=== PATIENT | female | born 1970 | race Caucasian/White ===

== ENCOUNTER 2021-07-21 04:49 | Inpatient (IN) | payer SELFPAY ==
[2021-07-21 05:30] LABS: Urine Blood Negative (Negative); Urine Glucose Negative (Negative); Urine Protein Negative (Negative); Urine Specific Gravity 1.025 (1.005-1.030); Urine pH 6.5 (5.0-7.0)
[2021-07-21] MEDS ORDERED: ASPIRIN 81 MG CHEWABLE TABLET ONE (05:47)
[2021-07-21 05:54] LABS: ALT/SGPT 20 U/L (12-78); AST/SGOT 11 U/L (15-37); Albumin 3.1 g/dL (3.4-5.0); Alkaline Phosphatase 118 U/L (45-117); BUN Blood Urea Nitrogen 14 mg/dL (7-18); Bicarbonate 29 mmol/L (21-32); Bilirubin Direct < 0.1 mg/dL (0-0.2); Bilirubin Total 0.2 mg/dL (0.2-1.0); Glucose Level 128 mg/dL (74-106); Lipase 152 U/L (73-393); NT PRO-BNP 32 pg/mL (<125); Potassium 3.9 mmol/L (3.5-5.1); Protein, Total 6.6 g/dL (6.4-8.2); Sodium Level 140 mmol/L (136-145); Troponin (Emerg Dept Use Only) < 0.02 ng/mL (0.0-0.045)
[2021-07-21 06:01] LABS: Absolute Lymphocytes (CBC) 1.7 K/uL (0.7-4.9); Basophils % 0.4 % (0-1.3); Hematocrit 39.4 % (36.0-45.0); Lymphocytes % 19.4 % (15.3-44.8); MPV 7.6 fL (7.6-11.3); RBC Red Blood Cell Count 4.74 M/uL (3.86-4.86)
[2021-07-21 06:03] LABS: Barbiturates NEGATIVE (NEGATIVE); Benzodiazepines NEGATIVE (NEGATIVE); Cocaine NEGATIVE (NEGATIVE); METHAMPHETAM POSITIVE (NEGATIVE); Methadone NEGATIVE (NEGATIVE); Opiates NEGATIVE (NEGATIVE); Phencyclidine NEGATIVE (NEGATIVE); THC Cannibis NEGATIVE (NEGATIVE)
--- NOTE | 2021-07-21 07:44 | RAD REPORT ---
EXAM DESCRIPTION: CT - Chest For Pe Angio - 07/21/2021 7:14 am CLINICAL HISTORY: Chest pain COMPARISON: July 21, 2021 chest x-ray TECHNIQUE: Dynamically enhanced axial 3 mm thick images of the chest were obtained during administra tion of <100> mL Isovue 370 IV contrast. Coronal and oblique reconstruction images were generated and reviewed. Exam utilizes a protocol for optimal evaluation of pulmonary arterial tree. Maximum intensity projections 3D imaging was utilized All CT scans are performed using dose optimization technique as appropriate and may include automated exposure control or mA/KV adjustment according to patient size. FINDINGS: A pulmonary embolus is not seen. A thoracic aortic aneurysm is not noted. A pleural effusion is not seen. A pericardial effusion is not seen. A lung consolidation is not present. IMPRESSION: Negative for a pulmonary embolism.
--- NOTE | 2021-07-21 07:44 | RAD REPORT ---
EXAM DESCRIPTION: Michelle Single View07/21/2021 5:26 am CLINICAL HISTORY: Chest pain COMPARISON: none FINDINGS: The lungs appear clear of acute infiltrate. The heart is normal size IMPRESSION: No acute abnormalities displayed
[2021-07-21] MEDS ORDERED: ENOXAPARIN 80 MG/0.8 ML SQ ONE (09:52)
--- NOTE | 2021-07-21 10:05 | P.HP ---
Certification for Inpatient With expected LOS: >2 Midnights Patient will require the following post-hospital care: None Practitioner: I am a practitioner with admitting privileges, knowledge of patient current condition, hospital course, and medical plan of care. Services: Services provided to patient in accordance with Admission requirements found in Title 42 Section 412.3 of the Code of Federal Regulations <Leticia Merino - Last Filed: 07/21/21 13:00> Patient History Date of Service: 07/21/21 Primary Care Provider: none Reason for admission: chest pain History of Present Illness: Ms. Maynard is a 51 year old woman with no medical history , tobacco abuse 1/2 ppd for 27 years who came to the ED at 5:30 am this morning with complaints of left side chest pain. The patient was asleep when she woke up from chest pain at 4:30 am prior to presentation. She describes the quality as chest tightness / pressure with radiation to left arm. It has been a constant pain since it started this morning. The pain was 6/10 when it started and is currently 0/10 in the ED after ASA 325 mg. She has not tried any medication at home. She denies fever , shortness of breath , diaphoresis , fatigue , palpitations , nausea , vomiting , diarrhea , weakness , dizziness , syncope , numbness or tingling. She does not report any aggravating or alleviating factors. She is visiting her daughter from [place] and had broke up with her boyfriend yesterday. She does not have health insurance and has not primary care provider. UDS positive for amphetamine , troponin 0.17 , D- dimer 824, EKG / CXT , CTA all unremarkable. The patient has history of COVID twice April 2020 and April 2021. She is not vaccinated against COVID. - Past Medical/Surgical History Diabetic: No Past Medical History: Patient denies medical history Past Surgical History: Patient denies surgical history - Social History Smoking Status: Current every day smoker Counseled patient to stop smoking for: less than 10 minutes Smoking therapy provided: Yes <Leticia Merino - Last Filed: 07/21/21 13:00> Date of Service: 07/21/21 - Family History Family History: Reviewed- Non-Contributory - Social History Place of Residence: Home <Hany Contreras - Last Filed: 07/21/21 16:34> Allergies Penicillins Allergy (Unknown, Verified 07/21/21 10:55) Rash Review of Systems General: Unremarkable Eyes: Unremarkable ENT: Unremarkable Respiratory: Unremarkable Cardiovascular: Unremarkable Gastrointestinal: Unremarkable Genitourinary: Unremarkable Musculoskeletal: Unremarkable Integumentary: Unremarkable Neurological: Unremarkable <Leticia Merino - Last Filed: 07/21/21 13:00> Physical Examination - Physical Exam General: Alert, In no apparent distress, Oriented x3, Cooperative HEENT: Atraumatic, Normocephalic, PERRLA, Mucous membr. moist/pink, Sclerae nonicteric Neck: Supple, 2+ carotid pulse no bruit, JVD not distended, Without JVD or thyroid abnormality Respiratory: Clear to auscultation bilaterally, Normal air movement Cardiovascular: No edema, Normal pulses, Regular rate/rhythm, Normal S1 S2, No gallops, No rubs, No murmurs Gastrointestinal: Normal bowel sounds, Soft and benign, Non-distended, No ascites, No tenderness, No masses, No rebound, No guarding Musculoskeletal: No clubbing, No swelling, No contractures, No erythema, No tenderness, No warmth Integumentary: No rashes, No breakdown, No significant lesion, No tenderness/swelling, No erythema, No warmth, No cyanosis Neurological: Normal gait, Normal speech, Normal strength at 5/5 x4 extr - Studies Laboratory Data (last 24 hrs) 07/21/21 05:00: PT 11.5, INR 1.00 07/21/21 05:00: WBC 8.80, Hgb 13.2, Hct 39.4, Plt Count 305 07/21/21 05:00: Sodium 140, Potassium 3.9, BUN 14, Creatinine 0.75, Glucose 128 H, Magnesium 2.0, Total Bilirubin 0.2, AST 11 L, ALT 20, Alkaline Phosphatase 118 H, Lipase 152 <WilberLeticia - Last Filed: 07/21/21 13:00> - Studies Laboratory Data (last 24 hrs) 07/21/21 05:00: PT 11.5, INR 1.00 07/21/21 05:00: WBC 8.80, Hgb 13.2, Hct 39.4, Plt Count 305 07/21/21 05:00: Sodium 140, Potassium 3.9, BUN 14, Creatinine 0.75, Glucose 128 H, Magnesium 2.0, Total Bilirubin 0.2, AST 11 L, ALT 20, Alkaline Phosphatase 118 H, Lipase 152 <Hany Contreras - Last Filed: 07/21/21 16:34> Assessment and Plan - Plan Assessment: 51 year old caucacian female with history of 1/2 ppd smoking for past 27 years presents for evaluation of chest pain. Plan: NonST-segment elevation myocardial infarction secondary to ACS: EKG NSR CXR unremarkable UDS positive for amphetamine Troponin 0.71. continue to [facility] q6H Echo pending Serial EKGs Continue telemonitoring Continue core measure: ASA , MARA-I , BB , Statin Lipid panel pending Heart healthy diet Educated patient on diet, exercise, smoking cessation, and lifestyle modification. Cardiology Consulted. Awaiting recommendations Elevated D-dimer: CTA negative continue to monitor Discharge Plan: Home Plan to discharge in: 48 Hours - Advance Directives Does patient have a Living Will: No Does patient have a Durable POA for Healthcare: No <Leticia Merino - Last Filed: 07/21/21 13:00> - Plan Plan of care discussed with Leticia as noted above. Agree with plan NSTEMI, trend troponin, echo ordered, aspirin, beta-fortunato, statin, pain control, telemetry UDS positive for amphetamines, increasing risk for ID/CAD Lovenox 1 mg/kg BID Cardiology consulted Time Spent Managing Pts Care (In Minutes): 60 <Hany Contreras - Last Filed: 07/21/21 16:34>
[2021-07-21] MEDS ORDERED: NITROGLYCERIN 0.4 MG/TAB SL PRN (10:06)
--- NOTE | 2021-07-21 10:07 | ER ---
[facility]'s [facility] Name: Vanessa Maynard Age: 51 yrs Sex: Female : 1970 Arrival Date: 07/21/2021 Time: 04:51 Bed 7 Private MD: Diagnosis: Non ST elevation MS Presentation: 07/21 05:07 Chief complaint: Patient states: Pt woke up at 0430 with midsternal chest pain and left df1 elbow pain. Coronavirus screen: Vaccine status: Patient reports being unvaccinated. Client reports previous positive COVID test result. Date of collection: April 2021. Ebola Screen: Patient negative for fever greater than or equal to 101.5 degrees Fahrenheit, and additional compatible Ebola Virus Disease symptoms Patient denies exposure to infectious person. Patient denies travel to an Ebola-affected area in the 21 days before illness onset. Initial Sepsis Screen: Does the patient meet any 2 criteria? No. Patient's initial sepsis screen is negative. Does the patient have a suspected source of infection? No. Patient's initial sepsis screen is negative. Risk Assessment: Do you want to hurt yourself or someone else? Patient reports no desire to harm self or others. Onset of symptoms was July 21, 2021 at 04:30. 05:07 Method Of Arrival: Ambulatory df1 05:07 Acuity: TEZ 3 df1 05:36 Note Pt ambulated to restroom with steady gait. Pt states she had a large BM, states "I df1 Feel better". 06:23 Note Pt resting quietly in bed. denies pain at this time. Waiting for more lab results. df1 Triage Assessment: 05:10 General: Appears in no apparent distress. uncomfortable, Behavior is anxious. Pain: df1 Complains of pain in xiphoid area and mid-sternal area Pain radiates to left antecubital area. EENT: No deficits noted. Neuro: No deficits noted. Cardiovascular:. Respiratory: Airway is patent Trachea midline Respiratory effort is even, unlabored, Respiratory pattern is regular, symmetrical, Breath sounds are clear bilaterally. GI: No deficits noted. : No deficits noted. Derm: No deficits noted. Musculoskeletal: No deficits noted. 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 - Social history:: Smoking status: Patient reports the use of cigarette tobacco products, smokes one pack cigarettes per day. Screenin:14 Abuse screen: Denies threats or abuse. Nutritional screening: No deficits noted. df1 Tuberculosis screening: No symptoms or risk factors identified. Fall Risk None identified. Assessment: 05:13 General: Appears in no apparent distress. Behavior is anxious. Pain: Complains of pain df1 in xiphoid area and mid-sternal area Pain began suddenly, 1 hour ago. Neuro: No deficits noted. Cardiovascular: No deficits noted. Respiratory: Airway is patent Trachea midline Respiratory effort is even, unlabored, Respiratory pattern is regular, symmetrical, Breath sounds are clear bilaterally. GI: No deficits noted. : No deficits noted. EENT: No deficits noted. Derm: No deficits noted. Musculoskeletal: No deficits noted. 07:22 General: Reports " I woke up with chest pain and that is why I came here. It doesn't tw5 hurt anymore, it stopped awhile after I came here". Pain: Denies pain. Neuro: No deficits noted. Cardiovascular: Heart tones S1 S2 present. Respiratory: Airway is patent Trachea midline Respiratory effort is even, unlabored, Respiratory pattern is regular, symmetrical. GI: Abdomen is round non-distended, Bowel sounds present X 4 quads. 08:39 Reassessment: Patient appears in no apparent distress at this time. No changes from tw5 previously documented assessment. Patient and/or family updated on plan of care and expected duration. Pain level reassessed. Patient is alert, oriented x 3, equal unlabored respirations, skin warm/dry/pink. Pain: Denies pain. 09:32 Reassessment: Patient appears in no apparent distress at this time. No changes from tw5 previously documented assessment. Patient and/or family updated on plan of care and expected duration. Pain level reassessed. Patient is alert, oriented x 3, equal unlabored respirations, skin warm/dry/pink. 10:48 Reassessment: Patient appears in no apparent distress at this time. No changes from tw5 previously documented assessment. Patient and/or family updated on plan of care and expected duration. Pain level reassessed. Patient is alert, oriented x 3, equal unlabored respirations, skin warm/dry/pink. Pain: Denies pain. Vital Signs: 05:07 BP 152 / 88; Pulse 96; Resp 18; Temp 97.7(O); Pulse Ox 100% on R/A; Weight 81.65 kg; df1 Height 5 ft. 3 in. (160.02 cm); Pain 5/10; 06:22 BP 129 / 69; Pulse 86; Resp 18; Pulse Ox 99% on R/A; Pain 0/10; df1 07:22 BP 130 / 67; Pulse 84; Resp 18; Pulse Ox 100% on R/A; Pain 0/10; tw5 08:39 BP 148 / 66; Pulse 81; Resp 17; Pulse Ox 100% on R/A; Pain 0/10; tw5 09:32 BP 135 / 72; Pulse 84; Resp 14; Pulse Ox 96% on R/A; Pain 0/10; tw5 10:48 BP 139 / 68; Pulse 81; Resp 19; Pulse Ox 99% on R/A; Pain 0/10; tw5 05:07 Body Mass Index 31.89 (81.65 kg, 160.02 cm) df1 ED Course: 04:51 Patient arrived in ED. bp1 04:54 Tc Rome MD is Attending Physician. 7 05:07 Liliya Hooks is Primary Nurse. df1 05:09 Triage completed. df1 05:13 Inserted saline lock: 20 gauge in right antecubital area, using aseptic technique. df1 Patient maintains SpO2 saturation greater than 95% on room air. 05:15 No provider procedures requiring assistance completed. df1 05:15 Arm band placed on right wrist. df1 05:15 Patient has correct armband on for positive identification. Placed in gown. Bed in low df1 position. Call light in reach. Side rails up X 1. Adult w/ patient. satellite project site monitor on. Pulse ox on. NIBP on. 05:20 Lipase Sent. df1 05:20 Basic Metabolic Panel Sent. df1 05:20 CBC with Diff Sent. df1 05:20 LFT's Sent. df1 05:20 Magnesium Sent. df1 05:20 NT PRO-BNP Sent. df1 05:20 Troponin (emerg Dept Use Only) Sent. df1 05:20 PT-INR Sent. df1 05:21 ETOH Level Sent. df1 05:26 XRAY Chest (1 view) In Process Unspecified. EDMS 05:33 UDS Sent. df1 06:22 CPK Sent. df1 06:22 D-Dimer Sent. df1 06:55 Yong Verdin PA is PHCP. jmm 07:07 CT Chest For PE Angio Sent. df1 07:14 CT Chest For PE Angio In Process Unspecified. EDMS 07:22 Primary Nurse role handed off by Liliya Hooks tw5 07:22 Soni Dudley is Primary Nurse. tw5 07:22 No apparent distress. Awaiting re-evaluation by ER provider. Patient moved back from CT.tw5 07:22 Patient has correct armband on for positive identification. Placed in gown. Bed in low tw5 position. Call light in reach. Side rails up X 1. satellite project site monitor on. Pulse ox on. NIBP on. Door closed. Noise minimized. Lights dimmed. Moved to private room. Warm blanket given. Verbal reassurance given. 08:39 Awaiting lab results. tw5 08:39 Lab(s) recollected, by me, sent to lab. tw5 08:39 Assisted to bathroom. tw5 08:40 Troponin (emerg Dept Use Only) Sent. tw5 09:24 Troponin (emerg Dept Use Only) Sent. tw5 09:46 EKG done, by ED staff, reviewed by Yong LAGUNAS. gd 10:06 Hany Contreras MD is Hospitalizing Provider. jmm 10:48 Patient has correct armband on for positive identification. Placed in gown. Bed in low tw5 position. Call light in reach. Side rails up X 1. satellite project site monitor on. Pulse ox on. NIBP on. Door closed. Noise minimized. Lights dimmed. Warm blanket given. Verbal reassurance given. 10:51 COVID-19 (Coronavirus) Document "Date of Onset" if Symptomatic Sent. tw5 10:51 CORONAVIRUS Sent. tw5 16:20 Patient admitted, IV remains in place. tw5 Administered Medications: 05:33 Drug: Aspirin Chewable Tablet 324 mg Route: PO; df1 07:25 Follow up: Response: No adverse reaction; Pain is decreased tw5 09:31 Drug: Lovenox (enoxaparin) 1 mg/kg Route: Sub-Q; Site: right lower abdomen; tw5 Outcome: 10:06 Decision to Hospitalize by Provider. greg 15:06 Admitted to Tele Report called to 1st attempt to call report. Patient currently tw5 getting report on another patient. I was asked to call back in 10 min. 15:58 Admitted to Tele Report called to Have been attempting to call 4th floor no answer. [facility] documentation supervisor notified. Called [phone], [phone], 1445 16:04 Admitted to Tele Report called to Spoke to Tata, she stated that the receiving nurse [facility] is unable to take report at this time, and will call back when available. 16:12 Admitted to Tele accompanied by tech, via wheelchair, with chart, Report called to [facility] Report called to Claudia FRY 16:20 Condition: stable tw5 16:21 Patient left the ED. tw5 Signatures: Dispatcher [employer] EDMS Yong Verdin PA PA jmm Paniauga, Brittany bp1 Holmes, Maurice, MD MD 7 Liliya Hooks dfSoni Pichardo tw5 Scott Candelaria
--- NOTE | 2021-07-21 10:07 | EDPHYS ---
Physician Documentation [facility] Name: Vanessa Maynard Age: 51 yrs Sex: Female : 1970 Arrival Date: 07/21/2021 Time: 04:51 Bed 7 Private MD: ED Physician Tc Rome HPI: 07/21 05:13 This 51 yrs old Female presents to ER via Ambulatory with complaints of Chest mh7 Pain > 30 y/o. 05:13 The patient or guardian reports chest pain that is located primarily in the substernal mh7 area. Onset: today, at 04:30. The pain does not radiate. Associated signs and symptoms: Pertinent positives: Left elbow pain, Pertinent negatives: abdominal pain, cough, diaphoresis, dizziness, headache, lower extremity pain, lower extremity swelling, lightheadedness, nausea, near syncope, palpitations, shortness of breath, syncope, vomiting. The chest pain is described as Discomfort. Duration: The patient or guardian reports multiple episodes, that are intermittent, that wax and wane, with no pattern. Modifying factors: The symptoms are alleviated by nothing. the symptoms are aggravated by nothing. Severity of pain: At its worst the pain was moderate today, in the emergency department the pain has improved moderately. 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 - Social history:: Smoking status: Patient reports the use of cigarette tobacco products, smokes one pack cigarettes per day. ROS: 05:13 Constitutional: Negative for fever, chills, and weight loss, Eyes: Negative for injury, mh7 pain, redness, and discharge, ENT: Negative for injury, pain, and discharge, Neck: Negative for injury, pain, and swelling, Respiratory: Negative for shortness of breath, cough, wheezing, and pleuritic chest pain, Abdomen/GI: Negative for abdominal pain, nausea, vomiting, diarrhea, and constipation, Back: Negative for injury and pain, : Negative for injury, bleeding, discharge, and swelling, MS/Extremity: Negative for injury and deformity, Skin: Negative for injury, rash, and discoloration, Neuro: Negative for headache, weakness, numbness, tingling, and seizure, Psych: Negative for depression, anxiety, suicide ideation, homicidal ideation, and hallucinations, Allergy/Immunology: Negative for hives, rash, and allergies, Endocrine: Negative for neck swelling, polydipsia, polyuria, polyphagia, and marked weight changes, Hematologic/Lymphatic: Negative for swollen nodes, abnormal bleeding, and unusual bruising. Exam: 05:13 Constitutional: This is a well developed, well nourished patient who is awake, alert, mh7 and in no acute distress. Head/Face: Normocephalic, atraumatic. Eyes: Pupils equal round and reactive to light, extra-ocular motions intact. Lids and lashes normal. Conjunctiva and sclera are non-icteric and not injected. Cornea within normal limits. Periorbital areas with no swelling, redness, or edema. Neck: Trachea midline, no thyromegaly or masses palpated, and no cervical lymphadenopathy. Supple, full range of motion without nuchal rigidity, or vertebral point tenderness. No Meningismus. Chest/axilla: Normal chest wall appearance and motion. Nontender with no deformity. No lesions are appreciated. Cardiovascular: Regular rate and rhythm with a normal S1 and S2. No gallops, murmurs, or rubs. Normal PMI, no JVD. No pulse deficits. Respiratory: Lungs have equal breath sounds bilaterally, clear to auscultation and percussion. No rales, rhonchi or wheezes noted. No increased work of breathing, no retractions or nasal flaring. Abdomen/GI: Soft, non-tender, with normal bowel sounds. No distension or tympany. No guarding or rebound. No evidence of tenderness throughout. Back: No spinal tenderness. No costovertebral tenderness. Full range of motion. Skin: Warm, dry with normal turgor. Normal color with no rashes, no lesions, and no evidence of cellulitis. MS/ Extremity: Pulses equal, no cyanosis. Neurovascular intact. Full, normal range of motion. Neuro: Awake and alert, GCS 15, oriented to person, place, time, and situation. Cranial nerves II-XII grossly intact. Motor strength 5/5 in all extremities. Sensory grossly intact. Cerebellar exam normal. Normal gait. Psych: Awake, alert, with orientation to person, place and time. Behavior, mood, and affect are within normal limits. Vital Signs: 05:07 BP 152 / 88; Pulse 96; Resp 18; Temp 97.7(O); Pulse Ox 100% on R/A; Weight 81.65 kg; df1 Height 5 ft. 3 in. (160.02 cm); Pain 5/10; 06:22 BP 129 / 69; Pulse 86; Resp 18; Pulse Ox 99% on R/A; Pain 0/10; df1 07:22 BP 130 / 67; Pulse 84; Resp 18; Pulse Ox 100% on R/A; Pain 0/10; tw5 08:39 BP 148 / 66; Pulse 81; Resp 17; Pulse Ox 100% on R/A; Pain 0/10; tw5 09:32 BP 135 / 72; Pulse 84; Resp 14; Pulse Ox 96% on R/A; Pain 0/10; tw5 10:48 BP 139 / 68; Pulse 81; Resp 19; Pulse Ox 99% on R/A; Pain 0/10; tw5 05:07 Body Mass Index 31.89 (81.65 kg, 160.02 cm) df1 MDM: 07:[address] [facility] 10:03 The patient was given aspirin in the Emergency Department. Data reviewed: vital signs, [facility] nurses notes. Counseling: I had a detailed discussion with the patient and/or guardian regarding: the historical points, exam findings, and any diagnostic results supporting the discharge/admit diagnosis, lab results, radiology results, the need for further work-up and treatment in the hospital. ED course: I discussed the patient with Mrs Wilber NP whom accepted the patient to Dr. Contreras's service. . 07/21 05:12 Order name: Basic Metabolic Panel; Complete Time: 06:07/21 05:12 Order name: CBC with Diff; Complete Time: 06:07/21 05:12 Order name: LFT's; Complete Time: 06:09 7 07/21 05:12 Order name: Magnesium; Complete Time: 06:07/21 05:12 Order name: NT PRO-BNP; Complete Time: 06:09 [facility] 07/21 05:12 Order name: PT-INR; Complete Time: 06:09 [facility] 07/21 05:12 Order name: Troponin (emerg Dept Use Only); Complete Time: 06:09 [facility] 07/21 05:12 Order name: UDS; Complete Time: 06:09 [facility] 07/21 05:12 Order name: Lipase; Complete Time: 06:09 [facility] 07/21 05:13 Order name: ETOH Level; Complete Time: 06:09 [facility] 07/21 05:30 Order name: Urine Dipstick-Ancillary; Complete Time: 05:41 [facility] 07/21 06:09 Order name: D-Dimer; Complete Time: 06:40 [facility] 07/21 06:10 Order name: CPK; Complete Time: 06:40 [facility] 07/21 08:01 Order name: Troponin (emerg Dept Use Only); Complete Time: 09:51 [facility] 07/21 05:12 Order name: XRAY Chest (1 view); Complete Time: 08:01 [facility] 07/21 05:12 Order name: EKG; Complete Time: 05:12 [facility] 07/21 06:40 Order name: CT Chest For PE Angio; Complete Time: 08:01 [facility] 07/21 10:17 Order name: Basic Metabolic Panel EDKS 07/21 10:17 Order name: Lipid Profile; Complete Time: 12:22 [facility] 07/21 10:17 Order name: PTT, Activated Partial Thromb EDKS 07/21 10:17 Order name: Troponin I EDKS 07/21 10:17 Order name: Echo with Doppler EDKS 07/21 10:17 Order name: CBC with Automated Diff EDKS 07/21 10:18 Order name: Magnesium; Complete Time: 12:22 EDMS 07/21 10:22 Order name: COVID-19 (Coronavirus) Document "Date of Onset" if Symptomatic eb 07/21 10:23 Order name: CORONAVIRUS [facility] 07/21 11:45 Order name: SARS-COV-2 RT PCR; Complete Time: 11:48 EDMS 07/21 12:17 Order name: CKMB Creatine Kinase MB; Complete Time: 12:22 [facility] 07/21 05:12 Order name: Cardiac monitoring; Complete Time: 05:13 [facility] 07/21 05:12 Order name: EKG - Nurse/Tech; Complete Time: 05:13 [facility] 07/21 05:12 Order name: IV Saline Lock; Complete Time: 05:13 7 07/21 05:12 Order name: Labs collected and sent; Complete Time: 05:13 7 07/21 05:12 Order name: O2 Per Protocol; Complete Time: 05:13 7 07/21 05:12 Order name: O2 Sat Monitoring; Complete Time: 05:13 7 07/21 05:12 Order name: Urine Dipstick-Ancillary (obtain specimen); Complete Time: 05:34 7 07/21 09:24 Order name: EKG - Nurse/Tech; Complete Time: 09:32 [facility] 07/21 10:17 Order name: Heart Healthy [facility] 07/21 10:17 Order name: EKG Electrocardiogram [facility] 07/21 10:17 Order name: EKG Electrocardiogram EDMS 07/21 10:17 Order name: EKG Electrocardiogram [facility] 07/21 10:17 Order name: EKG Electrocardiogram EDMS Administered Medications: 05:33 Drug: Aspirin Chewable Tablet 324 mg Route: PO; df1 07:25 Follow up: Response: No adverse reaction; Pain is decreased tw5 09:31 Drug: Lovenox (enoxaparin) 1 mg/kg Route: Sub-Q; Site: right lower abdomen; tw5 Disposition Summary: 07/21/21 10:06 Hospitalization Ordered Hospitalization Status: Inpatient Admission [facility] Provider: Hany Contreras Location: Telemetry/MedSurg (Inpatient) [facility] Condition: Stable [facility] Problem: new [facility] Symptoms: have improved [facility] Bed/Room Type: Standard [facility] Room Assignment: 426(07/21/21 14:43) eb Diagnosis - Non ST elevation TN [facility] Forms: - Medication Reconciliation Form [facility] - SBAR form [facility] Addendum: 07/24/2021 07:13 Co-signature as Attending Physician, Tc Rome MD. [facility] Signatures: Dispatcher [employer] EDMS Yong Verdin PA PA Vicky Huang Maurice, MD MD 7 Liliya Hooks df1 Soni Dudley tw5 Corrections: (The following items were deleted from the chart) 07/21 14:43 10:06 jmm eb
[2021-07-21] MEDS: METOPROLOL TARTRATE 5 MG/5 ML INJ IV SCH ×3 (11:00→11:10)
[2021-07-21] MEDS ORDERED: LORAZEPAM 1 MG TABLET PO PRN (11:11)
[2021-07-21] MEDS ORDERED: ACETAMINOPHEN 325 MG TABLET PO PRN (11:12)
[2021-07-21 11:33] VITALS: BMI 31.8
[2021-07-21] MEDS ORDERED: INSULIN -REGULAR HUMAN 50 UNIT/0.5 ML ML SQ SCH (12:00)
[2021-07-21 12:15] LABS: Magnesium 2.1 mg/dL (1.8-2.4)
[2021-07-21] MEDS ORDERED: INFLUENZA VACCINE (for 6+ mo) 0.5 ML DOSE IMVAC ONE ×2 (13:00→14:31)
[2021-07-21] MEDS: METOPROLOL TAR 25 MG TAB PO SCH (18:02)
[2021-07-21] MEDS: ENOXAPARIN 80 MG/0.8 ML SQ SCH (19:43)
[2021-07-21] MEDS ORDERED: ATORVASTATIN 80 MG TAB PO SCH (21:00)
[2021-07-22] MEDS: METOPROLOL TAR 25 MG TAB PO SCH (05:48)
[2021-07-22 06:11] LABS: Hematocrit 38.5 % (36.0-45.0); MPV 7.4 fL (7.6-11.3); RBC Red Blood Cell Count 4.65 M/uL (3.86-4.86)
[2021-07-22 06:35] LABS: BUN Blood Urea Nitrogen 9 mg/dL (7-18); Bicarbonate 27 mmol/L (21-32); Glucose Level 95 mg/dL (74-106); Potassium 4.2 mmol/L (3.5-5.1); Sodium Level 141 mmol/L (136-145)
[2021-07-22 06:46] LABS: Troponin I 0.59 ng/mL (0.0-0.045)
[2021-07-22] MEDS ORDERED: HEPA 1000U/500MLS 1,000 UNIT/500 ML BAG IV ONE (07:18)
--- NOTE | 2021-07-22 08:59 | EKG ---
Test Date: 2021-07-21 Test Time: 09:41:42 Spinning Frame Fixer: MEHDI MEASUREMENT RESULTS: Intervals: Rate: 79 OH: 138 QRSD: 84 QT: 402 QTc: 460 [place]: P: 66 OH: 138 QRS: 47 T: 62 INTERPRETIVE STATEMENTS: Normal sinus rhythm Normal ECG Compared to ECG 07/21/2021 05:03:16 No significant changes Electronically Signed On 07-22-21 08:57:24 CDT by Ghanshyam Pat
[2021-07-22] MEDS ORDERED: ASPIRIN 325 MG TAB PO SCH (09:00)
[2021-07-22] MEDS ORDERED: lisinopriL 20 MG TAB PO SCH (09:00)
--- NOTE | 2021-07-22 09:00 | EKG ---
Test Date: 2021-07-21 Test Time: 05:03:16 Animal Cop: REMIGIO MEASUREMENT RESULTS: Intervals: Rate: 96 GA: 154 QRSD: 82 QT: 372 QTc: 469 Ehrhardt: P: 72 GA: 154 QRS: 67 T: 73 INTERPRETIVE STATEMENTS: Normal sinus rhythm Normal ECG No previous ECG available for comparison Electronically Signed On 07-22-21 08:57:27 CDT by Ghanshyam Pat
[2021-07-22] MEDS ORDERED: NA CHLORIDE 0.9% 500 ML ONE (09:01)
[2021-07-22] MEDS ORDERED: FENTANYL CITR 100 MCG/2 ML ONE (10:41)
[2021-07-22] MEDS ORDERED: MIDAZOLAM HCL 2 MG/2 ML INJ ONE ×2 (10:41→11:24)
[2021-07-22] MEDS ORDERED: NITROGLYCERIN 100 MCG/ML SYR (for cath lab use only) IV ONE (10:42)
[2021-07-22] MEDS ORDERED: NITROGLYCERIN/D5W 25 MG/250 ML BTL IV ONE (10:42)
[2021-07-22] MEDS ORDERED: NA CHLORIDE 0.9% 0 ML ONE (10:42)
[2021-07-22] MEDS ORDERED: ATROPINE SULF 1 MG/10 ML SYR IV ONE (10:42)
--- NOTE | 2021-07-22 12:21 | CON ---
Date of Consultation: 07/21/2021 Reason For Consultation: Abnormal troponin and chest pain. History Of Present Illness: Ms. Maynard is a 51-year-old white woman with a family history of heart disease, positive tobacco use. Denies diabetes, hypertension, dyslipidemia. Takes no medicine. Ca me in with chest pain that was midsternal, chest pressure, nonexertional, woke her up from sleep. No nausea, vomiting, diaphoresis, PND, orthopnea, pedal edema, palpitation, or syncope. Her EKG was no rmal, but her troponin was positive and I was consulted. Past Medical History: Negative. Allergies: NEGATIVE. Family History: Positive for heart disease. Social History: Positive for tobacco use. Review of Systems: Negative. Physical Examination: Vital Signs: Stable, afebrile. HEENT: Negative. Neck: Supple with no bruit. Chest: Clear to auscultation and percussion. Cardiac: Revealed a regular rhythm and rate. No murmurs, gallops, or rubs. Abdomen: Benign. Extremities: Revealed no clubbing, cyanosis, or edema. Diagnostic Data: As stated earlier. Chest x-ray was negative. Impression And Plan: Chest pain, atypical as it woke her up from sleep. It was not exertional. No other symptoms. Positive troponin. Nevertheless, the patient has positive tobacco history, family h istory of heart disease. We decided to recommend a left heart catheterization to define her coronary anatomy. The patient understands the risks and the benefits of the procedure. She agrees to procecourtney d. The case will be discussed with Dr. Contreras. The case will be done on 07/22/2021. Continue medici ne for now. Hold Lovenox after midnight. FRANCIS/BUCK Voice ID: [id number] Report ID: [id number]
--- NOTE | 2021-07-22 12:27 | OP ---
Surgeon: Ghanshyam Pat MD Log Tumbler: Adali Rivera. Procedures: Left heart catheterization, selective coronary arteriogram. Indication: Chest pain and positive troponin consistent with non-ST elevation myocardial infarction. Procedure In Detail: The patient brought to the chemical laboratory tester today as an inpatient. She is 51, history of tobacco use, otherwise no previous past medical history. In the chemical laboratory tester, she was prepped and neto ped in the routine sterile fashion. Given Versed and fentanyl for sedation. A 6-Israeli sheath intro duced in the right common femoral artery. Angiography there was normal. Angio-Seal was used to clos e the case. A 6-Israeli sheath was introduced using Seldinger technique. JR4 and JL4 catheter were u sed to select the left main and right main respectively. She had a tortuous blood vessel, but normal coronaries. No focal stenosis. The patient tolerated the procedure well. There were no complicati ons. Blood Loss: 5 mL. Anesthesia: Total conscious sedation was 30 minutes. Postoperative Diagnoses: False positive troponin, positive chest pain, normal coronaries. Plan: Medical therapy, aspirin, tobacco cessation habematolel. NB/MODL Voice ID: [id number] Report ID: [id number]
[2021-07-22 12:29] VITALS: O2SAT 99
[2021-07-22] MEDS: ENOXAPARIN 80 MG/0.8 ML SQ SCH (13:13)
[2021-07-22 13:19] VITALS: BP 132/70; TEMP 97.8
--- NOTE | 2021-07-22 13:53 | P.DS ---
Admission Date: 07/21/21 Discharge Date: 07/22/21 Primary Care Provider: none Disposition: ROUTINE DISCHARGE Discharge Condition: GOOD Reason for Admission: chest pain Consultations: Cardiology - Dr. Pat Procedures: CXR (07/21): FINDINGS: The lungs appear clear of acute infiltrate. The heart is normal size IMPRESSION: No acute abnormalities displayed CTA chest (07/21): FINDINGS: A pulmonary embolus is not seen. A thoracic aortic aneurysm is not noted. A pleural effusion is not seen. A pericardial effusion is not seen. A lung consolidation is not present. IMPRESSION: Negative for a pulmonary embolism. Cardiac catheterization (07/22) by Dr. Pat Postoperative Diagnoses: False positive troponin, positive chest pain, normal coronaries. Problem list Chest pain Positive methamphetamine use Brief History of Present Illness: 51 year old woman with no medical history , tobacco abuse 1/2 ppd for 27 years who came to the ED at 5:30 am this morning with complaints of left side chest pain. The patient was asleep when she woke up from chest pain at 4:30 am prior to presentation. She describes the quality as chest tightness / pressure with radiation to left arm. It has been a constant pain since it started this morning. The pain was 6/10 when it started and is currently 0/10 in the ED after ASA 325 mg. She has not tried any medication at home. She denies fever , shortness of breath , diaphoresis , fatigue , palpitations , nausea , vomiting , diarrhea , weakness , dizziness , syncope , numbness or tingling. She does not report any aggravating or alleviating factors. She is visiting her daughter from [place] and had broke up with her boyfriend yesterday. She does not have health insurance and has not primary care provider. UDS positive for amphetamine , troponin 0.17 , D- dimer 824, EKG / CXT , CTA all unremarkable. The patient has history of COVID twice April 2020 and April 2021. She is not vaccinated against COVID. Hospital Course: EKG without ST changes/ischemic changes. Troponin increased, peaking to 1.27. Cardiology was consulted for NSTEMI, and patient was subsequently taken to the [facility] on 07/22. Her cardiac catheterization revealed no coronary artery disease, and a false positive elevated troponin. Cardiology recommended continuation with a low-dose aspirin daily, otherwise no new medications/changes. Patient deemed stable for discharge. To follow-up with your PCP in 3 to 5 days. Vital Signs/Physical Exam: Temp Pulse Resp BP Pulse Ox 97.8 F 75 18 132/70 98 07/22/21 13:18 07/22/21 13:18 07/22/21 13:18 07/22/21 13:18 07/22/21 13:18 General: Alert, In no apparent distress, Oriented x3 HEENT: Sclerae nonicteric Neck: Supple Respiratory: Clear to auscultation bilaterally, Normal air movement Cardiovascular: No edema, Regular rate/rhythm, No murmurs Gastrointestinal: Soft and benign, Non-distended, No tenderness Musculoskeletal: No erythema Integumentary: No rashes, No significant lesion Neurological: Normal speech, Normal affect Laboratory Data at Discharge: WBC 8.20 K/uL (4.3-10.9) 07/22/21 05:50 Hgb 12.7 g/dL (12.0-15.0) 07/22/21 05:50 Hct 38.5 % (36.0-45.0) 07/22/21 05:50 Plt Count 303 K/uL (152-406) 07/22/21 05:50 PT 11.5 SECONDS (9.5-12.5) 07/21/21 05:00 INR 1.00 07/21/21 05:00 APTT Cancelled 07/21/21 Unknown Sodium 141 mmol/L (136-145) 07/22/21 05:50 Potassium 4.2 mmol/L (3.5-5.1) 07/22/21 05:50 BUN 9 mg/dL (7-18) 07/22/21 05:50 Creatinine 0.65 mg/dL (0.55-1.3) 07/22/21 05:50 Glucose 95 mg/dL (74-106) 07/22/21 05:50 Magnesium 2.0 mg/dL (1.8-2.4) 07/22/21 05:50 Total Bilirubin 0.2 mg/dL (0.2-1.0) 07/21/21 05:00 AST 11 U/L (15-37) L 07/21/21 05:00 ALT 20 U/L (12-78) 07/21/21 05:00 Alkaline Phosphatase 118 U/L (45-117) H 07/21/21 05:00 Troponin I 0.59 ng/mL (0.0-0.045) H* 07/22/21 05:50 Triglycerides 103 mg/dL (<150) 07/21/21 11:35 Cholesterol 198 mg/dL (<200) 07/21/21 11:35 HDL Cholesterol 35 mg/dL (40-60) L 07/21/21 11:35 Cholesterol/HDL Ratio 5.66 07/21/21 11:35 Lipase 152 U/L (73-393) 07/21/21 05:00 Home Medications: Aspirin [Aspirin EC 81 MG] 81 mg PO DAILY 30 Days #30 tablet. 07/22/21 New Medications: Aspirin [Aspirin EC 81 MG] 81 mg PO DAILY 30 Days #30 tablet. Physician Discharge Instructions: Your chest pain was evaluated with a chest x-ray, CT scan, EKG, and cardiac troponins. Everything was normal/negative with the exception of mildly elevated cardiac enzymes. Cardiology was consulted and recommended cardiac catheterization. Your coronary arteries were noted to be normal, without any evidence of disease/blockage. Effectively ruling out your heart as a cause of this chest pain. There is also no clear evidence of any broken ribs, no infection, no blood clot, no other abnormality seen on imaging. This may have been due to the amount of stress you have had, or possibly some acid reflux. Follow-up with your PCP in 3-5 days. Recommend a daily baby aspirin for now. Can follow-up with cardiology in the next 4 to 6 weeks. Diet: Regular Activity: Ad dee Followup: Leticia Merino PA [Primary Care Provider] - Time spent managing pt's care (in minutes): 45
[2021-07-22] MEDS ORDERED: ACETAMINOPHEN 325 MG TABLET PO PRN (15:00)
--- NOTE | 2021-07-23 08:02 | ECHO ---
HEIGHT: 5 ft 3 in WEIGHT: 180 lb 0 oz DATE OF STUDY: 07/22/[address]: BEBO Ngo 2-DIMENSIONAL: YES M.MODE: YES DOPPLER: YES COLOR FLOW: YES TDS: PORTABLE: DEFINITY: BUBBLE STUDY: DIAGNOSIS: CHEST PAIN CARDIAC HISTORY: CATHERIZATION: YES SURGERY: NO PROSTHETIC VALVE: NO PACEMAKER: NO MEASUREMENTS (cm) DIASTOLIC (NORMALS) SYSTOLIC (NORMALS) IVSd 1.1 (0.6-1.2) LA Diam 2.5 (1.9-4.0) LVEF 55-60% LVIDd 2.5 (3.5-5.7) LVIDs 1.9 (2.0-3.5) %FS 25% LVPWd 1.1 (0.6-1.2) Ao Diam 2.7 (2.0-3.7) 2 DIMENSIONAL ASSESSMENT: RIGHT ATRIUM: NORMAL LEFT ATRIUM: NORMAL RIGHT VENTRICLE: NORMAL LEFT VENTRICLE: NORMAL TRICUSPID VALVE: NORMAL MITRAL VALVE: NORMAL PULMONIC VALVE: NORMAL AORTIC VALVE: NORMAL PERICARDIAL EFFUSION: NONE AORTIC ROOT: NORMAL LEFT VENTRICULAR WALL MOTION: NORMAL DOPPLER/COLOR FLOW: NORMAL COMMENTS: NORMAL LEFT VENTRICULAR EJECTION FRACTION 55-60%. NORMAL WALL MOTION. TECHNOLOGIST: ROSA MANCILLA
== END 2021-07-22 14:50 | disposition home or self-care (01) | DRG 287 ==
LOC: ER 04:49 → SUPCPDRO 04:49 → ERHOLD 10:07 → 4TH 16:16
PROVIDERS: ADMIT Hospitalist; ATTEND Hospitalist
PROC: B201YZZ Plain Radiography of Multiple Coronary Arteries using Other Contrast (ICD-10-PCS; principal; 2021-07-22)
DX: R07.89 Other chest pain (principal); F15.90 Other stimulant use, unspecified, uncomplicated; F17.210 Nicotine dependence, cigarettes, uncomplicated; Z86.16 Personal history of COVID-19; Z20.822 Contact with and (suspected) exposure to COVID-19; Z23 Encounter for immunization
CPT/HCPCS: 36415; 71045; 71275; 80048; 80061; 80076; 80307; 80320; 81003; 82550; 82553; 82947; 83690; 83735; 83880; 84484; 85025; 85027; 85379; 85610; 90471; 93005; 93306; 93454; 94760; 96372; 99285; C1760; C1893; J0583; J1644; J2250; J3010; J7040; Q2035; Q9967; U0003

== ENCOUNTER 2022-06-28 23:27 | Emergency (ER) | payer SELFPAY ==
[2022-06-28] MEDS ORDERED: TETRACAINE HCL 0.5% 4ML OPTH ONE (23:49)
[2022-06-28] MEDS ORDERED: FLUORESCEIN SODIUM 1 MG/WRAP ONE (23:49)
--- NOTE | 2022-06-28 23:53 | EDPHYS ---
Physician Documentation [facility] Name: Vanessa Maynard Age: 51 yrs Sex: Female : 1970 Arrival Date: 06/28/2022 Time: 23:30 Bed 14 Private MD: ED Physician Keya Lomas HPI: 06/28 23:37 This 51 yrs old Female presents to ER via Ambulatory with complaints of Eye Injury. kb 23:37 Associated signs and symptoms: Pertinent positives: None. Severity of symptoms: At kb their worst the symptoms were moderate in the emergency department the symptoms are unchanged. The patient has not experienced similar symptoms in the past. The patient has not recently seen a physician. 23:38 The patient is experiencing burning, matting or discharge, redness, to the left eye. kb Onset: The symptoms/episode began/occurred today. Duration: the symptoms are continuous. Aggravated by nothing. Alleviated by nothing. Pt reports redness, itching, burning, discharge from left eye. States a nail hit the outside of her eye yesterday and her granddaughter had pink eye last week so she isn't sure if one of those things are related.. Historical: - Allergies: 23:34 PENICILLINS; hb - PSHx: 23:34 Tonsillectomy; tubal ligation; hb - Immunization history:: Adult Immunizations up to date. - Social history:: Smoking status: Patient denies any tobacco usage or history of. ROS: 23:36 Constitutional: Negative for fever, chills, and weight loss. kb 23:36 Eyes: Positive for discharge, itching, redness, of the left eye. 23:36 All other systems are negative. Exam: 23:36 Constitutional: This is a well developed, well nourished patient who is awake, alert, kb and in no acute distress. Head/Face: Normocephalic, atraumatic. Respiratory: Respirations even and unlabored. No increased work of breathing. Talking in full sentences Skin: Warm, dry with normal turgor. Normal color. MS/ Extremity: Pulses equal, no cyanosis. Neurovascular intact. Full, normal range of motion. Neuro: Awake and alert, GCS 15, oriented to person, place, time, and situation. Moves all extremities. Normal gait. Psych: Awake, alert, with orientation to person, place and time. Behavior, mood, and affect are within normal limits. 23:36 Eyes: Pupils: equal, round, and reactive to light and accomodation, Extraocular movements: no acute changes, Conjunctiva: exudate, injected, Corneas: abrasion, is not appreciated, foreign body, is not appreciated, a fluorescein strip employed to appreciate the findings. Vital Signs: 23:31 BP 164 / 88; Pulse 102; Resp 18; Temp 97.7; Pulse Ox 100% on R/A; Weight 86.18 kg; hb Height 5 ft. 3 in. (160.02 cm); Pain 2/10; 23:31 Body Mass Index 33.66 (86.18 kg, 160.02 cm) hb Visual Acuity: 23:44 Left Eye Visual acuity 20/30, Normal; Right Eye Visual acuity 20/40, ; Both Eyes Visual ke1 acuity 20/30; Without Lenses; MDM: 23:33 Patient medically screened. kb 23:36 Data reviewed: vital signs, nurses notes. Data interpreted: Pulse oximetry: on room air kb is 100 %. Interpretation: normal. 23:39 Counseling: I had a detailed discussion with the patient and/or guardian regarding: the kb historical points, exam findings, and any diagnostic results supporting the discharge/admit diagnosis, the need for outpatient follow up, an opthalmologist, to return to the emergency department if symptoms worsen or persist or if there are any questions or concerns that arise at home. 06/28 23:36 Order name: Eye Tray; Complete Time: 23:39 kb 06/28 23:36 Order name: Fluoresene Opth strip; Complete Time: 23:39 kb 06/28 23:36 Order name: Visual Acuity; Complete Time: 23:43 kb Administered Medications: 23:40 Drug: Tetracaine Drops 0.5 % 1 drops {Note: by provider.} Route: Ophthalmic; Site: left ke1 eye; 23:58 Drug: Bacitracin-Polymyxin B Ointment 1 application Route: Ophthalmic; Site: left eye; ke1 Disposition: 06/29 20:58 STAFF ATTESTATION STATEMENT: I was immediately available onsite in the emergency sd2 department for consultation in the care of this patient. I did not see or examine this patient. Keya Lomas MD. Disposition Summary: 06/28/22 23:52 Discharge Ordered Location: Home kb Condition: Stable kb Diagnosis - Unspecified conjunctivitis kb Followup: kb - With: Emergency Department - When: As needed - Reason: Worsening of condition Followup: kb - With: Private Physician - When: 2 - 3 days - Reason: Recheck today's complaints, Continuance of care, Re-evaluation by your physician Discharge Instructions: - Discharge Summary Sheet kb - Bacterial Conjunctivitis, Adult, [id number] kb Forms: - Medication Reconciliation Form kb - Thank You Letter kb - Antibiotic Education kb - Prescription Opioid Use kb Signatures: Heidi Christian, VIANCA-C VIANCA-Chantelle Velasco, RN RN Venkatesh Jimenez RN RN ke1 Keya Lomas MD MD sd2 Corrections: (The following items were deleted from the chart) 06/28 23:52 23:36 Eyes: Pupils: equal, round, and reactive to light and accomodation, Extraocular kb movements: no acute changes, Conjunctiva: exudate, injected, kb
--- NOTE | 2022-06-28 23:53 | ER ---
Nurse's Notes [facility] Name: Vanessa Maynard Age: 51 yrs Sex: Female : 1970 Arrival Date: 06/28/2022 Time: 23:30 Bed 14 Private MD: Diagnosis: Unspecified conjunctivitis Presentation: 06/28 23:31 Chief complaint: Was removing a nail from wood yesterday, the nail flipped up and hit hb her upper eyelid, today c/o left eye redness, pain, itching, and greenish-yellow discharge. Coronavirus screen: At this time, the client does not indicate any symptoms associated with coronavirus-19. Ebola Screen: No symptoms or risks identified at this time. Initial Sepsis Screen: Does the patient meet any 2 criteria? No. Patient's initial sepsis screen is negative. Does the patient have a suspected source of infection? No. Patient's initial sepsis screen is negative. Risk Assessment: Do you want to hurt yourself or someone else? Patient reports no desire to harm self or others. Onset of symptoms was June 27, 2022. 23:31 Method Of Arrival: Ambulatory 23:31 Acuity: TEZ 4 hb Triage Assessment: 23:35 General: Appears in no apparent distress. Behavior is appropriate for age. ke1 Historical: - Allergies: 23:34 PENICILLINS; hb - PSHx: 23:34 Tonsillectomy; tubal ligation; hb - Immunization history:: Adult Immunizations up to date. - Social history:: Smoking status: Patient denies any tobacco usage or history of. Screenin:35 Abuse screen: Denies threats or abuse. Nutritional screening: No deficits noted. ke1 Tuberculosis screening: No symptoms or risk factors identified. Fall Risk None identified. Assessment: 23:58 Pain: Denies pain. ke1 06/29 00:14 Reassessment: Patient states feeling better. Patient states symptoms have improved. ke1 Vital Signs: 06/28 23:31 BP 164 / 88; Pulse 102; Resp 18; Temp 97.7; Pulse Ox 100% on R/A; Weight 86.18 kg; hb Height 5 ft. 3 in. (160.02 cm); Pain 2/10; 23:31 Body Mass Index 33.66 (86.18 kg, 160.02 cm) hb Visual Acuity: 23:44 Left Eye Visual acuity 20/30, Normal; Right Eye Visual acuity 20/40, ; Both Eyes Visual ke1 acuity 20/30; Without Lenses; ED Course: 23:30 Patient arrived in ED. [email or web address] 23:33 Heidi Christian FNP-C [facility]. kb 23:33 Keya Lomas MD is Attending Physician. kb 23:34 Triage completed. hb 23:34 Arm band placed on. hb 23:35 Bed in low position. Call light in reach. ke1 23:36 Venkatesh Jimenez, RN is Primary Nurse. ke1 06/29 00:13 No provider procedures requiring assistance completed. Patient did not have IV access ke1 during this emergency room visit. Administered Medications: 06/28 23:40 Drug: Tetracaine Drops 0.5 % 1 drops {Note: by provider.} Route: Ophthalmic; Site: left ke1 eye; 23:58 Drug: Bacitracin-Polymyxin B Ointment 1 application Route: Ophthalmic; Site: left eye; ke1 Medication: 06/29 00:13 VIS not applicable for this client. ke1 Outcome: 06/28 23:52 Discharge ordered by . kb 06/29 00:13 Discharged to home ambulatory. ke1 Condition: good Discharge instructions given to patient. 00:14 Patient left the ED. ke1 Signatures: Heidi Christian FNP-C FNP-Ckb Baxter, Heather, RN RN Mireille Molina Venkatesh Jimenez, LISANDRA RN ke1
[2022-06-29] MEDS ORDERED: NEO/BAC/POLY/HC OPTH OINT ONE (00:06)
[2022-06-30 11:31] VITALS: BP 164/88; TEMP 97.7; O2SAT 100
== END 2022-06-29 00:14 | disposition home or self-care (01) ==
LOC: ER 23:27
DX: H10.9 Unspecified conjunctivitis (principal); Z88.0 Allergy status to penicillin
CPT/HCPCS: 99283

== ENCOUNTER 2023-05-17 23:21 | Emergency (ER) | payer SELFPAY ==
[2023-05-18] MEDS ORDERED: ALBUTEROL 2.5 MG/3 ML NEB SOL ONE (00:32)
[2023-05-18] MEDS ORDERED: predniSONE 20 MG TAB ONE (00:32)
[2023-05-18] MEDS ORDERED: IPRATROPIUM BROM 0.5MG/2.5ML ONE (00:33)
--- NOTE | 2023-05-18 00:45 | ER ---
Nurse's Notes [facility] Name: Vanessa Maynard Age: 52 yrs Sex: Female : 1970 Arrival Date: 05/17/2023 Time: 23:21 Bed 12 Private MD: Diagnosis: Acute bronchitis, unspecified Presentation: 05/18 00:13 Chief complaint: Patient states: I have had a cough for the last 3-4 days. Coronavirus vc1 screen: Vaccine status: Patient reports being unvaccinated. Client denies travel out of the [place] in the last 14 days. cough unrelated to allergies, Client presents with at least one sign or symptom that may indicate coronavirus-19. Ebola Screen: Patient negative for fever greater than or equal to 101.5 degrees Fahrenheit, and additional compatible Ebola Virus Disease symptoms Patient denies exposure to infectious person. Patient denies travel to an Ebola-affected area in the 21 days before illness onset. No symptoms or risks identified at this time. 00:13 Method Of Arrival: Ambulatory vc1 00:18 Initial Sepsis Screen: Does the patient meet any 2 criteria? No. Patient's initial vc1 sepsis screen is negative. Does the patient have a suspected source of infection? No. Patient's initial sepsis screen is negative. Risk Assessment: Do you want to hurt yourself or someone else? Patient reports no desire to harm self or others. Onset of symptoms was May 14, 2023. 00:18 Acuity: TEZ 4 vc1 Triage Assessment: 00:16 General: Appears in no apparent distress. uncomfortable, Behavior is calm, cooperative, vc1 appropriate for age. Pain: Denies pain. EENT: No deficits noted. No signs and/or symptoms were reported regarding the EENT system. Neuro: Level of Consciousness is awake, alert, obeys commands, Oriented to person, place, time, situation, Appropriate for age. Cardiovascular: No deficits noted. Respiratory: Airway is patent Respiratory effort is even, unlabored, Respiratory pattern is regular, symmetrical. Respiratory: Reports cough that is non-productive, persistent. GI: No deficits noted. No signs and/or symptoms were reported involving the gastrointestinal system. : No deficits noted. No signs and/or symptoms were reported regarding the genitourinary system. Derm: No deficits noted. No signs and/or symptoms reported regarding the dermatologic system. Musculoskeletal: No deficits noted. No signs and/or symptoms reported regarding the musculoskeletal system. 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 - Social history:: Smoking status: Patient reports the use of cigarette tobacco products, smokes one-half pack cigarettes per day. - Family history:: not pertinent. Screenin:18 [facility] ED Fall Risk Assessment (Adult) History of falling in the last 3 months, vc1 including since admission No falls in past 3 months (0 pts) Confusion or Disorientation No (0 pts) Intoxicated or Sedated No (0 pts) Impaired Gait No (0 pts) Mobility Assist Device Used No (0 pt) Altered Elimination No (0 pt) Score/Fall Risk Level 0 - 2 = Low Risk Oriented to surroundings, Maintained a safe environment, Educated pt \T\ family on fall prevention, incl call for assistance when getting out of bed. Abuse screen: Denies threats or abuse. Nutritional screening: No deficits noted. Tuberculosis screening: No symptoms or risk factors identified. Assessment: 01:10 Reassessment: Patient and/or family updated on plan of care and expected duration. Pain vc1 level reassessed. Patient states feeling better. Patient states symptoms have improved. Vital Signs: 00:13 BP 157 / 88; Pulse 100; Resp 18; Temp 97.5; Pulse Ox 96% ; Weight 88.45 kg; Height 5 vc1 ft. 3 in. ; Pain 0/10; 01:12 BP 140 / 86; Pulse 98; Resp 18; Pulse Ox 95% ; vc1 00:13 Body Mass Index 34.54 (88.45 kg, 160.02 cm) vc1 00:13 Pain Scale: Adult vc1 ED Course: 05/17 23:24 Patient arrived in ED. [email or web address] 23:27 Isaac Barth MD is Attending Physician. rt 05/18 00:17 Arm band placed on right wrist. vc1 00:18 Triage completed. vc1 00:19 Patient has correct armband on for positive identification. Bed in low position. Pulse vc1 ox on. NIBP on. 00:27 Chest Pa And Lat (2 Views) XRAY In Process Unspecified. EDMS 01:12 No provider procedures requiring assistance completed. Patient did not have IV access vc1 during this emergency room visit. Administered Medications: 00:26 Drug: predniSONE PO 40 mg Route: PO; vc1 00:26 Drug: Albuterol Inhalation 2.5 mg Route: Inhalation; vc1 00:26 Drug: Ipratropium Inhalation Aerosol 0.5 mg Route: Inhalation; vc1 Medication: 00:19 VIS not applicable for this client. vc1 Outcome: 00:45 Discharge ordered by MD. rt 01:12 Discharged to home ambulatory. vc1 01:12 Condition: good 01:12 Discharge instructions given to patient, Instructed on discharge instructions, follow vc1 up and referral plans. medication usage, Demonstrated understanding of instructions, follow-up care, medications, Prescriptions given X 2. 01:12 Patient left the ED. vc1 Signatures: Dispatcher [employer] EDNJ Gisele Oropeza [email or web address] Patria Mccallum, RN RN vc1 Isaac Barth MD MD rt Corrections: (The following items were deleted from the chart) 03:19 03:19 Patient left the ED. vc1 vc1
--- NOTE | 2023-05-18 00:45 | EDPHYS ---
Physician Documentation [facility] Name: Vanessa Maynard Age: 52 yrs Sex: Female : 1970 Arrival Date: 05/17/2023 Time: 23:21 Bed 12 Private MD: ED Physician Isaac Barth HPI: 05/18 00:47 This 52 yrs old Female presents to ER via Ambulatory with complaints of Cough. rt 00:47 Patient presents to the ED with about 4 days of cough. Patient states that she has pain rt when occurs when she coughs, denies any chest pain otherwise. Denies any difficulty breathing. Patient does smoke about half a pack per day. She has had exposure to sick contacts. She denies other acute complaints at this time. Symptoms are mild in severity, no other aggravating or alleviating factors.. 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 - Social history:: Smoking status: Patient reports the use of cigarette tobacco products, smokes one-half pack cigarettes per day. - Family history:: not pertinent. ROS: 00:47 Constitutional: Negative for fever, chills, and weight loss, Abdomen/GI: Negative for rt abdominal pain, nausea, vomiting, diarrhea, and constipation, MS/Extremity: Negative for injury and deformity, Skin: Negative for injury, rash, and discoloration, Neuro: Negative for headache, weakness, numbness, tingling, and seizure, Psych: Negative for depression, anxiety, suicide ideation, homicidal ideation, and hallucinations. 00:47 Respiratory: Positive for cough, wheezing, Negative for shortness of breath. Exam: 00:47 Constitutional: This is a well developed, well nourished patient who is awake, alert, rt and in no acute distress. Head/Face: Normocephalic, atraumatic. Chest/axilla: Normal chest wall appearance and motion. Nontender with no deformity. No lesions are appreciated. Cardiovascular: Regular rate and rhythm with a normal S1 and S2. No gallops, murmurs, or rubs. Normal PMI, no JVD. No pulse deficits. Abdomen/GI: Soft, non-tender, with normal bowel sounds. No distension or tympany. No guarding or rebound. No evidence of tenderness throughout. Skin: Warm, dry with normal turgor. Normal color with no rashes, no lesions, and no evidence of cellulitis. MS/ Extremity: Pulses equal, no cyanosis. Neurovascular intact. Full, normal range of motion. Neuro: Awake and alert, GCS 15, oriented to person, place, time, and situation. Cranial nerves II-XII grossly intact. Motor strength 5/5 in all extremities. Sensory grossly intact. Cerebellar exam normal. Normal gait. Psych: Awake, alert, with orientation to person, place and time. Behavior, mood, and affect are within normal limits. 00:47 Abdomen/GI: Faint wheezes heard on all lung blake, no respiratory distress. Vital Signs: 00:13 BP 157 / 88; Pulse 100; Resp 18; Temp 97.5; Pulse Ox 96% ; Weight 88.45 kg; Height 5 vc1 ft. 3 in. ; Pain 0/10; 01:12 BP 140 / 86; Pulse 98; Resp 18; Pulse Ox 95% ; vc1 00:13 Body Mass Index 34.54 (88.45 kg, 160.02 cm) vc1 00:13 Pain Scale: Adult vc1 MDM: 05/17 23:49 Patient medically screened. rt 05/18 00:47 Differential Diagnosis: Other Bronchitis, pneumonia, pneumothorax, viral syndrome. Data rt reviewed: vital signs, nurses notes. I considered the following discharge prescriptions or medication management in the emergency department Medications were administered in the Emergency Department. See MAR. Independent interpretation of the following test(s) in the Emergency Department X-Ray: My interpretation is No consolidation seen on my interpretation of the x-ray images. Test considered but Not performed: EKG: Symptoms are most consistent with bronchospasm, denies any chest pain, EKG not indicated. Labs: Offered patient COVID, flu swabs, she declines this. CT: Low suspicion for pulmonary embolism, CT indicated. Counseling: I had a detailed discussion with the patient and/or guardian regarding: the historical points, exam findings, and any diagnostic results supporting the discharge/admit diagnosis, radiology results, the need for outpatient follow up, to return to the emergency department if symptoms worsen or persist or if there are any questions or concerns that arise at home, smoking cessation. Response to treatment: the patient's symptoms have resolved after treatment, the patient is not short of breath, wheezing has resolved. 05/18 00:02 Order name: Chest Pa And Lat (2 Views) XRAY rt Administered Medications: 00:26 Drug: predniSONE PO 40 mg Route: PO; vc1 00:26 Drug: Albuterol Inhalation 2.5 mg Route: Inhalation; vc1 00:26 Drug: Ipratropium Inhalation Aerosol 0.5 mg Route: Inhalation; vc1 Disposition Summary: 05/18/23 00:45 Discharge Ordered Location: Home rt Problem: new rt Symptoms: have improved rt Condition: Stable rt Diagnosis - Acute bronchitis, unspecified rt Followup: rt - With: Private Physician - When: 2 - 3 days - Reason: Discharge Instructions: - Discharge Summary Sheet rt - Acute Bronchitis, Adult rt Forms: - Medication Reconciliation Form rt - Thank You Letter rt - Antibiotic Education rt - Prescription Opioid Use rt - Patient Portal Instructions rt - Leadership Thank You Letter rt Prescriptions: - albuterol sulfate 90 mcg/actuation Inhalation HFA Aerosol Inhaler - inhale 2 puff by INHALATION route every 6 hours as needed for bronchospasm; 2 rt Each; Refills: 0, Product Selection Permitted - Prednisone 20 mg Oral Tablet - take 2 tablets by ORAL route once daily for 5 days; 10 tablet; Refills: 0, rt Product Selection Permitted Signatures: Dispatcher [employer] Patria Glez RN RN vc1 Isaac Barth MD MD rt
[2023-05-18 03:36] VITALS: TEMP 97.5
[2023-05-18 03:38] VITALS: BP 140/86; O2SAT 95
--- NOTE | 2023-05-18 14:10 | RAD REPORT ---
EXAM DESCRIPTION: RAD - Chest Pa And Lat (2 Views) - 05/18/2023 12:25 am CLINICAL HISTORY: 52 years Female, COUGH COMPARISON: None. FINDINGS: PA and lateral upright views of the chest. Trachea is midline. Normal size of the cardiac silhouette. No pulmonary vascular congestion. No consolidation. No pleural effusion or pneumothorax. No acute osseous abnormality. IMPRESSION: No acute radiographic abnormality. Electronically signed by: Elizabeth Weinberg MD 05/18/2023 12:38 AM CDT Due to temporary technical issues with the PACS/Fluency reporting system, reports are being signed by the in house radiologist without review as a courtesy to ensure prompt reporting. The interpreting r adiologist is fully responsible for the content of the report.
== END 2023-05-18 03:19 | disposition home or self-care (01) ==
LOC: ER 23:21
DX: J20.9 Acute bronchitis, unspecified (principal); F17.210 Nicotine dependence, cigarettes, uncomplicated; Z88.0 Allergy status to penicillin
CPT/HCPCS: 71046; 99284; J7512; J7613; J7644

== ENCOUNTER 2025-05-30 11:36 | Inpatient (IN) | payer SELFPAY ==
[2025-05-30] MEDS ORDERED: ADENOSINE 6 MG/ 2ML VIAL IV ONE (11:49)
[2025-05-30] MEDS ORDERED: NA CHLORIDE 0.9% 1,000 ML ONE (11:49)
[2025-05-30] MEDS ORDERED: MAGNESIUM SULFATE 1 gm IVPB 1 GM/100 ML BAG IV ONE (11:51)
[2025-05-30 12:13] LABS: Absolute Lymphocytes (CBC) 2.1 K/uL (0.7-4.9); Hematocrit 46.2 % (36.0-45.0); Hemoglobin 14.7 g/dL (12.0-15.0); MCH 26.0 pg (27.0-35.0); MCHC 32.0 g/dL (32.0-36.0); MCV 81.5 fL (80-100); MPV 8.6 fL (7.6-11.3); Nucleated RBC Absolute Count 0.0 (0-0); Nucleated Red Blood Cells % 0.1 % (0-0); RBC Red Blood Cell Count 5.66 M/uL (3.86-4.86); White Blood Count 13.90 thou/uL (4.3-10.9)
[2025-05-30 12:20] LABS: PT Prothrombin Time 12.9 SECONDS (10-13.0); Protime INR 1.15
[2025-05-30 12:34] LABS: Anion Gap 9.8 mEq/L (5.0-15.0); BUN Blood Urea Nitrogen 10.0 mg/dL (7-18); Glucose Level 187.0 mg/dL (74-106); Potassium 3.8 mEq/L (3.5-5.1)
[2025-05-30 12:40] LABS: Troponin High Sensitivity 19.5 pg/mL (<58.9)
--- NOTE | 2025-05-30 12:40 | RAD REPORT ---
Procedure: Chest Single View HISTORY: Palpitations COMPARISON: 2022 FINDINGS: The lungs appear clear of acute infiltrate. No significant pleural effusion noted. The heart is normal size. IMPRESSION: No acute abnormality is displayed.
[2025-05-30 13:04] LABS: Thyroid Stimulating Hormone 1.75 uIU/mL (0.358-3.740)
--- NOTE | 2025-05-30 13:31 | ER ---
Nurse's Notes [facility] Name: Vanessa Maynard Age: 54 yrs Sex: Female : 1970 Arrival Date: 05/30/2025 Time: 11:36 Bed 4 Private MD: Diagnosis: Supraventricular tachycardia Presentation: 05/30 11:50 Chief complaint: Patient states: CHEST PRESSURE, SOB, ANXIETY, PALPITATIONS. bp Coronavirus screen: At this time, the client does not indicate any symptoms associated with coronavirus-19. Ebola Screen: No symptoms or risks identified at this time. Initial Sepsis Screen: Does the patient meet any 2 criteria? HR > 90 bpm. No. Patient's initial sepsis screen is negative. Does the patient have a suspected source of infection? No. Patient's initial sepsis screen is negative. Risk Assessment: Do you want to hurt yourself or someone else? Patient reports no desire to harm self or others. Onset of symptoms is unknown. 11:50 Method Of Arrival: Ambulatory bp 11:50 Acuity: TEZ 2 bp Triage Assessment: 11:50 General: Appears distressed, Behavior is cooperative, appropriate for age, agitated, bp anxious. Pain: Denies pain. EENT: No deficits noted. Neuro: No deficits noted. Cardiovascular: Rhythm is SVT. Respiratory: Reports shortness of breath. GI: No signs and/or symptoms were reported involving the gastrointestinal system. : No signs and/or symptoms were reported regarding the genitourinary system. Derm: No deficits noted. Musculoskeletal: No deficits noted. Historical: - Allergies: 11:50 PENICILLINS; bp - PSHx: 11:50 Tonsillectomy; tubal ligation; bp - Immunization history:: Adult Immunizations unknown. - Infectious Disease History:: Denies. - Social history:: Smoking status: unknown. - Family history:: not pertinent. - Hospitalizations: : No recent hospitalization is reported. Screenin:32 [facility] ED Fall Risk Assessment (Adult) History of falling in the last 3 months, bp including since admission No falls in past 3 months (0 pts) Confusion or Disorientation No (0 pts) Intoxicated or Sedated No (0 pts) Impaired Gait No (0 pts) Mobility Assist Device Used No (0 pt) Altered Elimination No (0 pt) Score/Fall Risk Level 0 - 2 = Low Risk Oriented to surroundings. Abuse screen: Denies threats or abuse. Denies injuries from another. Nutritional screening: No deficits noted. Tuberculosis screening: No symptoms or risk factors identified. Assessment: 11:50 General: PT MOVED FROM RM 17 FOR SYMPTOMATIC SVT. PT PLACED ON MONITORING WITH DEFIB bp PADS.. 11:58 Reassessment: Patient states feeling better. Patient states symptoms have improved. bp Cardiovascular: Rhythm is sinus tachycardia. 12:32 Reassessment: Patient appears in no apparent distress at this time. Patient is alert, bp oriented x 3, equal unlabored respirations, skin warm/dry/pink. 20:34 Reassessment: Patient appears in no apparent distress at this time. No changes from lg3 previously documented assessment. Patient and/or family updated on plan of care and expected duration. Pain level reassessed. Patient is alert, oriented x 3, equal unlabored respirations, skin warm/dry/pink. Patient states feeling better. Patient states symptoms have improved. Vital Signs: 11:50 BP 109 / 73; Pulse 200; Resp 29; Pulse Ox 99% ; bp 12:00 BP 120 / 76; Pulse 98; Resp 20; Pulse Ox 98% ; bp 12:31 BP 126 / 77; Pulse 106; Resp 18; Pulse Ox 99% ; bp 14:00 BP 94 / 68; Pulse 94; Resp 17; Pulse Ox 98% ; bp 15:00 BP 105 / 81; Pulse 92; Resp 18; Pulse Ox 98% ; bp 16:00 BP 131 / 64; Pulse 87; Resp 20; Pulse Ox 99% ; bp 17:00 BP 122 / 61; Pulse 84; Resp 20; Pulse Ox 99% ; bp 20:34 BP 147 / 79; Pulse 88; Resp 18 S; Pulse Ox 99% on R/A; lg3 ED Course: 11:40 Patient arrived in ED. al6 11:40 Felicitas Pritchett PA-C is PHCP. sb4 11:40 Fuentes Contreras MD is Attending Physician. sb4 11:50 Arm band placed on. bp 11:50 Inserted saline lock: 20 gauge in right antecubital area, using aseptic technique. bp Patient maintains SpO2 saturation greater than 95% on room air. 11:55 Victor M Blackmon, RN is Primary Nurse. bp 11:55 Primary Nurse role handed off by Victor M Blackmon, LISANDRA de1 11:55 Eddleman, Judy, RN is Primary Nurse. me1 12:00 Triage completed. bp 12:32 Patient has correct armband on for positive identification. Client placed on continuous bp cardiac and pulse oximetry monitoring. NIBP monitoring applied. property assessment monitor on. Pulse ox on. NIBP on. 12:34 XRAY Chest (1 view) In Process Unspecified. EDMS 13:30 Hany Contreras MD is Hospitalizing Provider. rn 17:27 No provider procedures requiring assistance completed. Patient admitted, IV remains in bp place. Administered Medications: 11:53 Drug: Adenocard IVP 6 mg IVP once Route: IVP; Site: right antecubital; bp 14:02 Follow up: Response: Marked relief of symptoms me1 11:53 Drug: Magnesium Sulfate IVPB 1 grams IVPB once over 1 hrs Route: IVPB; Infused Over: 1 bp hrs; Site: right antecubital; 14:03 Follow up: Response: No adverse reaction; IV Status: Completed infusion me1 11:53 Drug: NS 0.9% IV 500 ml 500 ml IV at 1 bolus once; to be given as a bolus over 30 bp minutes Volume: 500 ml; Route: IV; Rate: 1 bolus; Site: right antecubital; 14:03 Follow up: Response: No adverse reaction; IV Status: Completed infusion me1 13:50 Drug: Aspirin PO 325 mg PO once Route: PO; me1 14:03 Follow up: Response: No adverse reaction me1 Medication: 17:27 VIS not applicable for this client. bp Outcome: 13:30 Decision to Hospitalize by Provider. rn 17:27 Admitted to ER Hold. Please see [facility] for further documentation. bp 17:27 Condition: stable 17:27 Instructed on the need for admit, 20:35 Patient left the ED. lg3 Signatures: Dispatcher [employer] EDMS Fuentes Contreras MD MD rn Peltier, Brian RN Sarah Betancourt RN RN lg3 Felicitas Pritchett PA-C PAJose sb4 Judy Steiner, RN RN me1 Valeri Dick6 Corrections: (The following items were deleted from the chart) 12:19 12:12 T4 FREE+C.LAB.BRZ drawn and sent. [facility] EDSC 12:19 12:12 THYROID STIMULAT HORMONE+C.LAB.BRZ drawn and sent. me1 EDMS
--- NOTE | 2025-05-30 13:31 | EDPHYS ---
Physician Documentation [facility] Name: Vanessa Maynard Age: 54 yrs Sex: Female : 1970 Arrival Date: 05/30/2025 Time: 11:36 Bed 4 Private MD: ED Physician Fuentes Contreras HPI: 05/30 12:32 This 54 yrs old Female presents to ER via Ambulatory with complaints of palpitations, rn Chest Pain, Shortness Of Breath. 12:32 Patient reports heart racing, palpitations, began this morning. Has happened once rn before but reset with ice water to the face at home on her own. Has never been evaluated for arrhythmia. Denies chest pain but does report a little bit of pressure. No new medication. Historical: - Allergies: 11:50 PENICILLINS; bp - PSHx: 11:50 Tonsillectomy; tubal ligation; bp - Immunization history:: Adult Immunizations unknown. - Infectious Disease History:: Denies. - Social history:: Smoking status: unknown. - Family history:: not pertinent. - Hospitalizations: : No recent hospitalization is reported. ROS: 12:32 Constitutional: Negative for fever, chills, and weight loss, Cardiovascular: Positive rn for palpitations and heart racing Respiratory: Positive for shortness of breath Abdomen/GI: Negative for abdominal pain, nausea, vomiting, diarrhea, and constipation, MS/Extremity: Negative for injury and deformity, Skin: Negative for injury, rash, and discoloration, Neuro: Negative for headache, weakness, numbness, tingling, and seizure, Exam: 12:23 ECG was reviewed by the Attending Physician. rn 12:32 Constitutional: This is a well developed, well nourished patient who is awake, alert, rn appears anxious, hyperventilating Cardiovascular: Tachycardic, regular. No pulse deficits. Respiratory: Hyperventilating, able to slow down with coaching Abdomen/GI: Soft, nontender, no masses Neuro: Awake and alert, GCS 15 Vital Signs: 11:50 BP 109 / 73; Pulse 200; Resp 29; Pulse Ox 99% ; bp 12:00 BP 120 / 76; Pulse 98; Resp 20; Pulse Ox 98% ; bp 12:31 BP 126 / 77; Pulse 106; Resp 18; Pulse Ox 99% ; bp 14:00 BP 94 / 68; Pulse 94; Resp 17; Pulse Ox 98% ; bp 15:00 BP 105 / 81; Pulse 92; Resp 18; Pulse Ox 98% ; bp 16:00 BP 131 / 64; Pulse 87; Resp 20; Pulse Ox 99% ; bp 17:00 BP 122 / 61; Pulse 84; Resp 20; Pulse Ox 99% ; bp 20:34 BP 147 / 79; Pulse 88; Resp 18 S; Pulse Ox 99% on R/A; lg3 MDM: 11:41 Medical Screening Exam initiated sb4 12:24 ED course: Patient status post medical cardioversion with adenosine, 6 mg here, rn successful and now in sinus rhythm. Patient feels much better with normalization of blood pressure.. 13:25 Differential diagnosis: acute pericarditis, anxiety, coronary artery disease rn pericarditis, pleurisy, pneumonia, pneumothorax, stable angina, SVT. HEART Score: History: Slightly Suspicious (0), ECG: Non specific repolarization disturbance / LBTB / PM (1), Age: > 45 and < 65 years (1), Risk Factors: 1 or 2 risk factors (1), Troponin: < or = 1 x Normal Limit (0), Total Score = 3. Data reviewed: vital signs, nurses notes, lab test result(s), EKG, radiologic studies, plain films, and as a result, I will admit patient. Consideration of Admission/Observation Patient was admitted/placed on observation. Escalation of care including admission/observation considered. Independent interpretation of the following test(s) in the Emergency Department EKG: See my EKG interpretation above X-Ray: My interpretation is Chest x-ray images negative for pneumothorax per my interpretation. Care significantly affected by the following chronic conditions: Hypertension. Counseling: I had a detailed discussion with the patient and/or guardian regarding the historical points, exam findings, and any diagnostic results supporting the discharge/admit diagnosis, lab results, radiology results, the need for further work-up and treatment in the hospital. Response to treatment: the patient's symptoms have markedly improved after treatment, and as a result, I will admit patient. 05/30 11:57 Order name: Basic Metabolic Panel rn 05/30 11:57 Order name: CBC with Diff; Complete Time: 12:43 rn 05/30 11:57 Order name: NT PRO-BNP rn 05/30 11:57 Order name: PT-INR; Complete Time: 12:43 rn 05/30 11:57 Order name: Troponin HS rn 05/30 12:19 Order name: T4 Free EDAL 05/30 12:19 Order name: Thyroid Stimulating Hormone EDAL 05/30 14:23 Order name: Magnesium EDAL 05/30 14:24 Order name: Phosphorus EDAL 05/30 14:24 Order name: CBC with Automated Diff EDAL 05/30 14:24 Order name: CBC with Automated Diff EDMS 05/30 14:24 Order name: Comprehensive Metabolic Panel EDAL 05/30 14:24 Order name: Comprehensive Metabolic Panel EDAL 05/30 14:24 Order name: Troponin High Sensitivity EDAL 05/30 14:24 Order name: Troponin High Sensitivity [facility] 05/30 14:24 Order name: Troponin High Sensitivity [facility] 05/30 11:57 Order name: XRAY Chest (1 view); Complete Time: 12:43 rn 05/30 14:23 Order name: Echo with Doppler EDAL 05/30 14:19 Order name: CONS Physician Consult EDAL 05/30 11:57 Order name: Cardiac monitoring; Complete Time: 11:59 rn 05/30 11:57 Order name: EKG - Nurse/Tech; Complete Time: 11:59 rn 05/30 11:57 Order name: IV Saline Lock; Complete Time: 11:59 rn 05/30 11:57 Order name: Labs collected and sent; Complete Time: 11:59 rn 05/30 11:57 Order name: O2 Per Protocol; Complete Time: 11:59 rn 05/30 11:57 Order name: O2 Sat Monitoring; Complete Time: 11:59 rn EC:23 Rate is 200 beats/min. Rhythm is regular. QRS [place] is Normal. QT interval is normal. No rn Q waves. T waves are Normal. No ST changes noted. Clinical impression: SVT. Interpreted by me. Reviewed by me. Administered Medications: 11:53 Drug: Adenocard IVP 6 mg IVP once Route: IVP; Site: right antecubital; bp 14:02 Follow up: Response: Marked relief of symptoms me1 11:53 Drug: Magnesium Sulfate IVPB 1 grams IVPB once over 1 hrs Route: IVPB; Infused Over: 1 bp hrs; Site: right antecubital; 14:03 Follow up: Response: No adverse reaction; IV Status: Completed infusion me1 11:53 Drug: NS 0.9% IV 500 ml 500 ml IV at 1 bolus once; to be given as a bolus over 30 bp minutes Volume: 500 ml; Route: IV; Rate: 1 bolus; Site: right antecubital; 14:03 Follow up: Response: No adverse reaction; IV Status: Completed infusion me1 13:50 Drug: Aspirin PO 325 mg PO once Route: PO; me1 14:03 Follow up: Response: No adverse reaction me1 Disposition: 13:25 Critical Care:. 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 Total time: 35 rn minutes Signatures: Dispatcher [employer] EDMS Fuentes Contreras MD MD rn Peltier, Brian RN RN Nicholas Kline RN RN ll1 Felicitas Pritchett PA-C PAJose sb4 Misty Rain rv1 Judy Steiner RN RN me1 Corrections: (The following items were deleted from the chart) 11:58 11:58 BASIC METABOLIC PANEL+C.LAB.BRZ ordered. EDAL EDMS 11:58 11:58 CBC+H.LAB.BRZ ordered. EDMS EDMS 11:58 11:58 PROBNP+C.LAB.BRZ ordered. EDMS EDMS 11:58 11:58 PROTIME (+INR)+COAG.LAB.BRZ ordered. EDAL EDMS 11:58 11:58 Troponin High Sensitivity+C.LAB.BRZ ordered. EDAL EDMS 11:58 11:58 Chest Single View+RAD.RAD.BRZ ordered. EDAL EDMS 12:19 12:06 THYROID STIMULAT HORMONE+C.LAB.BRZ ordered. EDMS EDMS 12:19 12:06 T4 FREE+C.LAB.BRZ ordered. EDMS EDMS 13:30 Telemetry/MedSurg (Inpatient) rn ll1 13:30 rn ll1 19: 15:33 [facility] ER HOLD ll1 rv1 : 15: ERHOLD- ll1 rv1
[2025-05-30] MEDS ORDERED: ASPIRIN 325 MG TAB ONE (13:41)
[2025-05-30] MEDS ORDERED: ACETAMINOPHEN 325 MG TABLET PO PRN (14:15)
[2025-05-30] MEDS ORDERED: HYDROCODONE/APAP 5/325 MG TAB PO PRN (14:15)
[2025-05-30] MEDS ORDERED: ONDANSETRON 4 MG/2 ML VIAL IV PRN (14:21)
--- NOTE | 2025-05-30 14:25 | P.HP ---
Certification for Inpatient Patient admitted to: Inpatient With expected LOS: >2 Midnights Patient will require the following post-hospital care: None Practitioner: I am a practitioner with admitting privileges, knowledge of patient current condition, hospital course, and medical plan of care. Services: Services provided to patient in accordance with Admission requirements found in Title 42 Section 412.3 of the Code of Federal Regulations Patient History Date of Service: 05/30/25 Reason for admission: Palpitations History of Present Illness: Patient is a 54-year-old female with a past medical history significant for anxiety disorder, obesity, nicotine dependence who presents with complaint of palpitations onset this morning. Patient reported associated signs and symptoms of diaphoresis, dizziness and chest pain. Patient describes chest pain as pressure in quality and rated pain as 6/10 in severity. Patient denies any other signs and symptoms. Symptoms are aggravated or relieved by nothing. Patient decided to present to the hospital due to worsening symptoms. Allergies Penicillins Allergy (Unknown, Verified 07/21/21 10:55) Rash Home Medications: Aspirin [Aspirin EC 81 MG] 81 mg PO DAILY 30 Days #30 tablet. 07/22/21 - Past Medical/Surgical History Diabetic: No -: Anxiety disorder -: Nicotine dependence -: Obesity -: Tubal ligation -: Tonsillectomy - Family History Mother -: Cancer Father -: Heart disease - Social History Smoking Status: Current every day smoker Counseled patient to stop smoking for: less than 10 minutes Smoking therapy provided: Yes Patient receptive to therapy: No Alcohol use: No CD- Drugs: No Caffeine use: Yes Place of Residence: Home Review of Systems General: Sweats, Unremarkable Eyes: Unremarkable ENT: Unremarkable Respiratory: Shortness of Breath Cardiovascular: Chest Pain, Palpitations Gastrointestinal: Unremarkable Genitourinary: Unremarkable Musculoskeletal: Unremarkable Integumentary: Unremarkable Neurological: Other (Dizziness) Lymphatics: Unremarkable Physical Examination - Physical Exam General: Alert, In no apparent distress, Cooperative HEENT: Atraumatic, PERRLA, Mucous membr. moist/pink, EOMI, Sclerae nonicteric Neck: Supple, 2+ carotid pulse no bruit, No LAD, Without JVD or thyroid abnormality Respiratory: Clear to auscultation bilaterally, Normal air movement Cardiovascular: No edema, Regular rate/rhythm, Normal S1 S2 Capillary refill: <2 Seconds Gastrointestinal: Normal bowel sounds, Soft and benign, No tenderness Musculoskeletal: No clubbing, No tenderness Integumentary: No rashes, No significant lesion Neurological: Normal gait, Normal speech, Normal strength at 5/5 x4 extr, Normal tone, Normal affect Lymphatics: No axilla or inguinal lymphadenopathy - Studies Laboratory Data (last 24 hrs) 05/30/25 05/30/25 05/30/25 12:05 12:05 12:05 WBC 13.90 H Hgb 14.7 Hct 46.2 H Plt Count 493 H PT 12.9 INR 1.15 Sodium 140 Potassium 3.8 BUN 10 Creatinine 0.91 Glucose 187 H Assessment and Plan - Plan SVT Palpitations --Patient given adenosine in the ER. --Rate controlled. --Telemetry to monitor for any malignant arrhythmia. --Echocardiogram pending to assess cardiac structures and functions. --Cardiology consulted. Recommendations appreciated. Chest pain. --Likely atypical. --Serial troponins negative so far. --Further management per global cto. --Continue supportive care. Hypotension. --Blood pressures trending up. --Will continue to monitor blood pressure levels. Class II obesity. --Likely secondary to excess calories intake. --Patient counseled on weight reduction, diet and excise therapy. Anxiety disorder. --Patient not on home medications. --Prefers conservative management. Nicotine dependence. --Patient counseled on tobacco cessation. --Refuses nicotine patch. Leukocytosis. --Likely reactive. --Will continue to monitor WBC levels. CKD 2. --Baseline functions unknown. --Will continue to monitor renal functions. DVT prophylaxis with Lovenox subQ Discharge Plan: Home Plan to discharge in: 48 Hours - Advance Directives Does patient have a Living Will: No Does patient have a Durable POA for Healthcare: No - Code Status/Comfort Care Code Status Assessed: Yes Physician Review: Patient Assessed, Agree with Above Assessment and Plan Critical Care: Yes (At least 45 minutes of care provided to patient.)
[2025-05-30 15:32] LABS: NT PRO-BNP 74.0 pg/mL (<125)
[2025-05-30 17:24] VITALS: BMI 34.7
[2025-05-30] MEDS ORDERED: ENOXAPARIN 40 MG/0.4 ML SQ ONE (19:41)
[2025-05-30] MEDS: ENOXAPARIN 40 MG/0.4 ML SQ SCH (19:45)
[2025-05-30 20:49] LABS: Magnesium 2.3 mg/dL (1.6-2.4)
[2025-05-30 20:52] LABS: HDL Cholesterol 30.0 mg/dL (40-60); LDL Cholesterol, Calculated 161.0 mg/dL (<130); LDL Cholesterol,Calc NonReport 161.0
[2025-05-31 01:19] VITALS: O2SAT 99
[2025-05-31 05:56] LABS: Absolute Lymphocytes (CBC) 1.4 K/uL (0.7-4.9); Hematocrit 37.0 % (36.0-45.0); Hemoglobin 12.4 g/dL (12.0-15.0); MCH 27.0 pg (27.0-35.0); MCHC 33.4 g/dL (32.0-36.0); MCV 80.9 fL (80-100); MPV 8.2 fL (7.6-11.3); Nucleated RBC Absolute Count 0.0 (0-0); Nucleated Red Blood Cells % 0.0 % (0-0); RBC Red Blood Cell Count 4.58 M/uL (3.86-4.86); White Blood Count 7.30 thou/uL (4.3-10.9)
[2025-05-31 06:15] LABS: ALT/SGPT 22.0 U/L (13-56); AST/SGOT 16.0 U/L (15-37); Albumin 2.8 g/dL (3.4-5.0); Albumin/Globulin Ratio 0.9 (1.1-1.8); Alkaline Phosphatase 120.0 U/L (45-117); Anion Gap 6.0 mEq/L (5.0-15.0); BUN Blood Urea Nitrogen 10.0 mg/dL (7-18); Globulin 3.0 g/dL (2.3-3.5); Glucose Level 99.0 mg/dL (74-106); Magnesium 2.2 mg/dL (1.6-2.4); Potassium 4.0 mEq/L (3.5-5.1)
[2025-05-31] MEDS: ASPIRIN EC 81 MG TAB PO SCH (08:12)
--- NOTE | 2025-05-31 10:16 | P.DS ---
Admission Date: 05/30/25 Discharge Date: 05/31/25 Disposition: ROUTINE DISCHARGE Discharge Condition: GOOD Reason for Admission: Palpitations Consultations: Dr. Abdullahi-cardiology Brief History of Present Illness: Patient is a 54-year-old female with a past medical history significant for anxiety disorder, obesity, nicotine dependence who presents with complaint of palpitations onset this morning. Patient reported associated signs and symptoms of diaphoresis, dizziness and chest pain. Patient describes chest pain as pressure in quality and rated pain as 6/10 in severity. Patient denies any other signs and symptoms. Symptoms are aggravated or relieved by nothing. Patient decided to present to the hospital due to worsening symptoms. Hospital Course: Problem List SVT Palpitations Chest pain. Hypotension. Class II obesity. Anxiety disorder. Nicotine dependence. Patient was admitted to the hospital for SVT. She received adenosine in the ER and converted to sinus rhythm. She is monitored in the hospital overnight and had no further episodes of SVT. She is seen by cardiology in the morning recommended giving her as needed flecainide to take for further episodes of SVT at home. She is instructed to take 1 tablet immediately if she begins to feel the palpitations and she may take another tablet after 15 minutes if she still having palpitations. Follow-up with cardiology in 1 week in the office Continue other home medications as previously prescribed Vital Signs/Physical Exam: Temp Pulse Resp BP Pulse Ox 97.2 F 74 18 142/74 H 98 05/31/25 04:00 05/31/25 06:00 05/31/25 06:00 05/31/25 06:00 05/31/25 06:00 General: Alert, In no apparent distress, Oriented x3 HEENT: Atraumatic Neck: Supple Respiratory: Clear to auscultation bilaterally, Normal air movement Cardiovascular: Regular rate/rhythm, Normal S1 S2 Neurological: Normal speech, Normal affect Laboratory Data at Discharge: WBC 7.30 thou/uL (4.3-10.9) 05/31/25 05:40 Hgb 12.4 g/dL (12.0-15.0) D 05/31/25 05:40 Hct 37.0 % (36.0-45.0) 05/31/25 05:40 Plt Count 292 thou/uL (152-406) D 05/31/25 05:40 PT 12.9 SECONDS (10-13.0) 05/30/25 12:05 INR 1.15 05/30/25 12:05 Sodium 143 mEq/L (136-145) 05/31/25 05:40 Potassium 4.0 mEq/L (3.5-5.1) 05/31/25 05:40 BUN 10 mg/dL (7-18) 05/31/25 05:40 Creatinine 0.62 mg/dL (0.55-1.02) 05/31/25 05:40 Glucose 99 mg/dL (74-106) 05/31/25 05:40 Phosphorus 2.5 mg/dL (2.5-4.9) 05/31/25 05:40 Magnesium 2.2 mg/dL (1.6-2.4) 05/31/25 05:40 Total Bilirubin 0.3 mg/dL (0.2-1.0) 05/31/25 05:40 AST 16 U/L (15-37) 05/31/25 05:40 ALT 22 U/L (13-56) 05/31/25 05:40 Alkaline Phosphatase 120 U/L (45-117) H 05/31/25 05:40 Triglycerides 238 mg/dL (<150) H 05/30/25 19:47 Cholesterol 239 mg/dL (<200) H 05/30/25 19:47 HDL Cholesterol 30 mg/dL (40-60) L 05/30/25 19:47 Cholesterol/HDL Ratio 7.97 05/30/25 19:47 Home Medications: Aspirin [Aspirin EC 81 MG] 81 mg PO DAILY 30 Days #30 tablet 07/22/21 Flecainide Acetate 50 mg PO Q15M PRN #10 tab 05/31/25 Rosuvastatin Calcium [Crestor] 20 mg PO BEDTIME #30 tab 05/31/25 New Medications: Rosuvastatin Calcium [Crestor] 20 mg PO BEDTIME #30 tab Flecainide Acetate 50 mg PO Q15M PRN #10 tab PRN Reason: Palpitations Physician Discharge Instructions: Patient was admitted to the hospital for SVT. She received adenosine in the ER and converted to sinus rhythm. She is monitored in the hospital overnight and had no further episodes of SVT. She is seen by cardiology in the morning rec ommended giving her as needed flecainide to take for further episodes of SVT at home. She is instructed to take 1 tablet immediately if she begins to feel the palpitations and she may take another tablet after 15 minutes if she still having palpitations. Follow-up with cardiology in 1 week in the office Continue other home medications as previously prescribed Diet: AHA Activity: Ad dee Followup: Tom Abdullahi MD [ACTIVE - CAN ADMIT] - 1 Week NONE,NONE [Primary Care Provider] - 1 Week Time spent managing pt's care (in minutes): 37
[2025-05-31 10:34] VITALS: BP 138/68; TEMP 97.3
--- NOTE | 2025-05-31 10:35 | P.CNS ---
Date of Consult: 05/31/25 Chief Complaint: Palpitations History of Present Illness: Patient with PMH of SVT, presented with ER with palpitations, BETANCOURT, report chest pressure when she felt her HR was going fast, denies any other cardiac symptoms. Allergies Penicillins Allergy (Unknown, Verified 07/21/21 10:55) Rash Home medications list reviewed: Yes Home Medications: Aspirin [Aspirin EC 81 MG] 81 mg PO DAILY 30 Days #30 tablet. 07/22/21 Flecainide Acetate 50 mg PO Q15M PRN #10 tab 05/31/25 Rosuvastatin Calcium [Crestor] 20 mg PO BEDTIME #30 tab 05/31/25 - Past Medical/Surgical History Diabetic: No -: Anxiety disorder -: Nicotine dependence -: Obesity -: Tubal ligation -: Tonsillectomy - Family History Mother Medical History: Cancer Father Medical History: Heart disease - Social History Smoking Status: Unknown if ever smoked Alcohol use: No CD- Drugs: No Caffeine use: Yes Place of Residence: Home Review of Systems 10-point ROS is otherwise unremarkable Physical Examination Temp Pulse Resp BP Pulse Ox 97.2 F 74 18 142/74 H 98 05/31/25 04:00 05/31/25 06:00 05/31/25 06:00 05/31/25 06:00 05/31/25 06:00 General: Alert, In no apparent distress HEENT: Atraumatic, PERRLA, Mucous membr. moist/pink, EOMI, Sclerae nonicteric Neck: Supple, 2+ carotid pulse no bruit, No LAD, Without JVD or thyroid abnormality Respiratory: Clear to auscultation bilaterally, Normal air movement Cardiovascular: Regular rate/rhythm, Normal S1 S2 Gastrointestinal: Normal bowel sounds, No tenderness Musculoskeletal: No tenderness Integumentary: No rashes Neurological: Normal gait, Normal speech, Normal tone, Normal affect Lymphatics: No axilla or inguinal lymphadenopathy Laboratory Data (last 24 hrs) 05/30/25 05/30/25 05/30/25 12:05 12:05 12:05 WBC 13.90 H Hgb 14.7 Hct 46.2 H Plt Count 493 H PT 12.9 INR 1.15 Sodium 140 Potassium 3.8 BUN 10 Creatinine 0.91 Glucose 187 H - Problems (1) SVT (supraventricular tachycardia) Current Visit: Yes Status: Acute Plan: Patient presented with SVT, now resolved. patient typically will need an ablation advised her about multiple manuevers to get herself out of SVT Will send flecanide to pharmacy to be used PRN. follow up with cardiology as outpatient.
== END 2025-05-31 11:00 | disposition home or self-care (01) | DRG 310 ==
LOC: ER 11:36 → ERHOLD 14:15 → 3RD-ICU 19:14
PROVIDERS: ADMIT Hospitalist; ATTEND Hospitalist
DX: I47.10 Supraventricular tachycardia, unspecified (principal); I95.9 Hypotension, unspecified; I12.9 Hypertensive chronic kidney disease with stage 1 through stage 4 chronic kidney disease, or unspecified chronic kidney disease; N18.2 Chronic kidney disease, stage 2 (mild); F41.9 Anxiety disorder, unspecified; E66.812 Obesity, class 2; D72.829 Elevated white blood cell count, unspecified; F17.200 Nicotine dependence, unspecified, uncomplicated; Z88.0 Allergy status to penicillin; Z71.6 Tobacco abuse counseling; Z79.82 Long term (current) use of aspirin; Z68.34 Body mass index [BMI] 34.0-34.9, adult
CPT/HCPCS: 36415; 71045; 80048; 80053; 80061; 83036; 83735; 83880; 84100; 84439; 84443; 84484; 85025; 85610; 93005; 96365; 96366; 96375; 99285; J0153; J1650; J3475; J7030